=== PATIENT | male | born 1950 | race Caucasian/White ===

== ENCOUNTER 2017-10-10 06:35 | Day surgery (SDC) | payer MEDICARE ==
[2017-10-09 14:08] VITALS: BMI 23.0
[2017-10-10 07:34] VITALS: BP 111/71; TEMP 97.8
--- NOTE | 2017-10-10 10:01 | RAD ---
MYELOGRAM LUMBAR: Date: 10-10-17 History: 67-year-old male with new right lumbar radiculopathy. Technique: Signed informed consent obtained. Director Athletic radiographic images of the lumbar spine obtained. Patient delia issa in prone ROBBY position on fluoroscopy table. Skin of lower back prepped and draped in usual steril e fashion. 25 gauge needle used to apply buffered Lidocaine superficially and deeply. Under brief int ermittent fluoroscopy, a 22 gauge spinal needle was advanced into the spinal canal from a right perri edian approach at the L1-2 level (after reviewing previous CT lumbar myelogram of 07-01-15, which demo nstrated that the conus medullaris terminates at the mid L1 level). Upon brisk return of clear CSF, a total of 10 ml CSF was removed and replaced by injection of 10 ml of Isovue M200. Spinal needle was removed. Patient tolerated the procedure well. No complications. Patient was taken to CT. FINDINGS: The feather shaper radiographic images demonstrate severe bilateral facet osteoarthrosis at L4-5 causing a gra de I anterolisthesis of L4 on L5. There are moderate degenerative changes of the right SI joint. Vert ebral body heights are maintained. No scoliosis. No high grade disc space narrowing at any level. IMPRESSION: 1. Successful lumbar myelogram. 2. See separate report of CT myelogram of lumbar spine. 3. Grade I spondylolisthesis due to severe facet osteoarthrosis, at L4-5. 4. Degenerative changes of the right sacroiliac joint. POS: [facility]
--- NOTE | 2017-10-10 10:41 | CT ---
CT LUMBAR SPINE WITH CONTRAST CT MYELOGRAM LUMBAR SPINE: DATE: 10/10/17. HISTORY: A 67-year-old male with lumbar radiculopathy, low back pain radiating to right lower extremity. COMPARISON: CT myelogram of 07/01/15. FINDINGS: Again noted are the punctate 2 mm calculus in a right renal upper pole calyx, and the other punctate 2 mm calculus at a left renal lower pole calyx. There is no hydronephrosis. There are moderate dege nerative changes at the right SI joint, and mild degenerative changes at the left SI joint, unchanged . No scoliosis. Vertebral body heights are maintained. There are 5 lumbar-type vertebrae. T11-12: Normal. T12-L1: Normal. Conus medullaris terminates at mid L1. L1-2: Normal. L2-3: Slight narrowing of the posterior aspect of the disk space. Minimal disk bulge. Slight degen erative retrolisthesis of L2 on L3. Mild central stenosis. No high-grade neural foraminal stenosis. Mild to moderate bilateral degenerative facet changes. L3-4: Disk height maintained. There is new centrally located vacuum disk phenomenon. In addition t o a diffuse disk bulge, there is again demonstration of a thin, shallow, small midline disk extrusion , a portion of which has migrated superiorly to the upper foraminal level. Mild ligamentum flavum t hickening. A greater degree of focal hyperdensity at the posterior right paracentral edge of the sma ll central disk herniation, which probably represents calcification. Degenerative facet changes are mild. Moderate to severe central spinal canal stenosis. Mild to moderate bilateral neural foraminal stenosis. The slight degenerative retrolisthesis of L3 on L4 is unchanged. L4-5: Mild disk space narrowing. Severe bilateral degenerative facet changes, including severe face t bony hypertrophy. This degenerative facet disease causes a grade I anterolisthesis of L4 on L5. D iffuse mild disk bulge. All of these factors result in severe central spinal canal stenosis with crown attacher wding of the cauda equina. Moderate bilateral neural foraminal stenosis. No major interval change. L5-S1: Narrowing of the posterior aspect of the disk space, but not the mid and anterior aspects. N o central stenosis. Bilateral mild to moderate degenerative facet hypertrophy. Mild bilateral neura l foraminal stenosis. No high-grade central stenosis. IMPRESSION: 1. At L4-5, there is severe central spinal canal stenosis and moderate bilateral neural foraminal st enosis, due to a combination of severe facet osteoarthrosis, a grade I spondylolisthesis, and a mild diffuse disk bulge. 2. At L3-4, there is moderate to severe central spinal canal stenosis due to a combination of diffus e disk bulge, retrolisthesis, and a small, superiorly migrated central disk extrusion. 3. There is new vacuum disk phenomenon at L3-4, and a slightly greater degree of calcification of th e disk herniation. This is the only interval change since the prior CT myelogram. 4. Bilateral mild nephrolithiasis. POS: [facility]
== END 2017-10-10 09:20 | disposition home or self-care (01) ==
LOC: RAD 06:35 → EDSTATUS 08:00 → RAD 09:20
PROVIDERS: ATTEND Neurological Surgery
PROC: B00B1ZZ Plain Radiography of Spinal Cord using Low Osmolar Contrast (ICD-10-PCS; principal; 2017-10-10)
DX: M54.16 Radiculopathy, lumbar region (principal); M43.16 Spondylolisthesis, lumbar region; I25.10 Atherosclerotic heart disease of native coronary artery without angina pectoris; E11.9 Type 2 diabetes mellitus without complications; E78.5 Hyperlipidemia, unspecified; I25.5 Ischemic cardiomyopathy; I48.91 Unspecified atrial fibrillation; Z88.0 Allergy status to penicillin; Z79.82 Long term (current) use of aspirin; Z79.84 Long term (current) use of oral hypoglycemic drugs; Z79.899 Other long term (current) drug therapy; Z95.1 Presence of aortocoronary bypass graft; Z95.0 Presence of cardiac pacemaker; Z98.890 Other specified postprocedural states
CPT/HCPCS: 62304; 72132

== ENCOUNTER 2018-05-23 06:09 | Day surgery (SDC) | payer MEDICARE ==
[2018-05-22 15:31] VITALS: BMI 24.4
--- NOTE | 2018-05-23 15:53 | OP ---
DATE OF PROCEDURE: 05/23/2018 PROCEDURE PERFORMED: Colonoscopy with snare polypectomy. PREMEDICATIONS: Given by Anesthesiology Department. PREPROCEDURE DIAGNOSIS: Colon screening. POSTPROCEDURE DIAGNOSES: 1. Transverse polyps x2. 2. Small internal hemorrhoids. 3. Otherwise, normal colon exam. DESCRIPTION OF PROCEDURE: Written consents were obtained prior to procedure. After adequate sedation, rectal exam was performed and was normal. The endoscope was advanced to cecum. The quality of the bowel prep was good. The appendiceal orifice was visualized and appeared normal. The cecum, ascending colon, hepatic flexure appeared normal. In the transverse colon, 2 small polyps measuring between 3 to 5 mm were noted. These polyps were removed with cold snare and retrieved. The splenic flexure, descending colon, sigmoid colon, rectosigmoid colon appeared normal. Retroflexion demonstrated small internal hemorrhoids. The patient tolerated the procedure well. ASSESSMENT: 1. Two small transverse colon polyps, status post polypectomy. 2. Small internal hemorrhoids. 3. Otherwise, normal colon exam. RECOMMENDATION: Await biopsy result. Job ID: [id number] MTDD
[2018-05-23] MEDS ORDERED: PHENYLEPHRINE-NS 100 MCG/ML 10 ML SYRINGE ONE (16:31)
[2018-05-23] MEDS ORDERED: PROPOFOL 200 MG/20 ML VIAL ONE (16:31)
== END 2018-05-23 10:20 | disposition home or self-care (01) ==
LOC: SDC 06:09
PROVIDERS: ATTEND Internal Medicine Gastroenterology
PROC: 0DBL8ZX Excision of Transverse Colon, Via Natural or Artificial Opening Endoscopic, Diagnostic (ICD-10-PCS; principal; 2018-05-23)
DX: Z12.11 Encounter for screening for malignant neoplasm of colon (principal); D12.3 Benign neoplasm of transverse colon; K64.8 Other hemorrhoids; I48.91 Unspecified atrial fibrillation; I25.10 Atherosclerotic heart disease of native coronary artery without angina pectoris; E11.9 Type 2 diabetes mellitus without complications; E78.00 Pure hypercholesterolemia, unspecified; Z79.82 Long term (current) use of aspirin; Z79.02 Long term (current) use of antithrombotics/antiplatelets; Z79.84 Long term (current) use of oral hypoglycemic drugs; Z79.899 Other long term (current) drug therapy; Z88.0 Allergy status to penicillin; Z95.1 Presence of aortocoronary bypass graft
CPT/HCPCS: 88305; J2704

== ENCOUNTER 2018-08-27 14:58 | Inpatient (IN) | payer MEDICARE ==
--- NOTE | 2018-08-27 16:05 | RAD ---
PORTABLE CHEST 1 VIEW: Date: 08/27/18 Time: 1445 hours HISTORY: Chest pain. FINDINGS: Comparison made with exam of 08/12/16. Left-sided defibrillator remains in place. Changes of median sternotomy are again seen. The heart siz e is normal. The aorta is tortuous. The lungs are well expanded without focal areas of consolidation, pneumothoraces, or pleural effusions. IMPRESSION: No acute process. POS: [facility]
[2018-08-27 16:22] LABS: #Eosinphils 0.2 thou/uL (0.0-0.7); #Monocytes 1.5 thou/uL (0.11-0.59); #Neutrophils 12.6 thou/uL (1.40-6.50); %Basophils 0.1 % (0.0-1.0); %Eosinophils 1.4 % (0.0-10.0); %Lymphocytes 6.3 % (21.0-51.0); %Neutrophils 82.1 % (42.0-75.0); Hemoglobin 15.8 g/dL (14.0-18.0); Mean Corpuscular Hemoglobin 32.2 pg (27.0-31.0); Mean Corpuscular Volume 94.6 fL (78.0-98.0); Mean Platelet Volume 8.5 fL (7.4-10.4); Platelet Count 188 thou/uL (130-400); RBC Distribution Width 11.6 % (11.5-14.5); Red Blood Cell (RBC) Count 4.91 mill/uL (4.70-6.10); White Blood Cell (WBC) Count 15.4 thou/uL (4.8-10.8)
[2018-08-27] MEDS ORDERED: metroNIDAZOLE 500 MG/100 ML BAG ONE (16:41)
[2018-08-27] MEDS ORDERED: Acetaminophen 500 MG TAB ONE (17:01)
[2018-08-27 17:18] LABS: ALT (SGPT) 20 U/L (8-55); AST (SGOT) 18 U/L (5-34); Albumin 3.4 g/dL (3.4-4.8); Alkaline Phosphatase 47 U/L (40-150); Anion Gap 15 mmol/L (10-20); BUN (Urea Nitrogen) 30 mg/dL (8.4-25.7); Bilirubin, Total 0.9 mg/dL (0.2-1.2); CK (CPK) 56 U/L (30-200); Calc. Creatinine Clearance 0 mL/min (70-130); Carbon Dioxide 23 mmol/L (23-31); Chloride 98 mmol/L (98-107); Estimated GFR-MDRD 44; Globulin 2.9 g/dL (2.4-3.5); Glucose 185 mg/dL (80-115); Lipase 21 U/L (8-78); Potassium 3.7 mmol/L (3.5-5.1); Protein, Total 6.3 g/dL (5.8-8.1); Sodium 132 mmol/L (136-145)
[2018-08-27] MEDS ORDERED: Lidocaine 1% (PF) 30 ML VIAL ONE (19:03)
[2018-08-27] MEDS ORDERED: Norepinephrine 8 MG/0.9% NS 250 ML ONE (19:12)
[2018-08-27] MEDS ORDERED: Norepinephrine 8 MG/250 ML BAG IVPB PRN (19:14)
[2018-08-27 19:22] LABS: Bilirubin Small (Negative); Blood, Urine Negative (Negative); Clarity CLOUDY (Clear); Glucose, Urine (Dipstick) Negative (Negative); Leukocyte Trace (Negative); Nitrite Negative (Negative); Protein, Urine (Dipstick) 30 mg/dL (Neg-Trace); Specific Gravity, Urine 1.026 (1.002-1.036); Urobilinogen 0.2 mg/dL (0.2-1.0); pH, Urine 5.5 (5.0-9.0)
[2018-08-27 19:24] LABS: Squamous Epithelial 0-3 HPF (0-3); WBC/HPF 0-3 HPF (0-3)
[2018-08-27 19:25] LABS: Pathc Cast-AUWi Flag 6.66 (0-2.49)
[2018-08-27 19:33] LABS: Bacteria/HPF 1+ HPF (None Seen); Hyaline Casts/LPF NONE SEEN LPF (0-3 Hyaline); Manual Microscopic Reviewed? No Path Casts Seen; RBC/HPF None Seen HPF (0-3); Renal Epithelial None Seen HPF (0-3); Transitional Epithelial NONE SEEN HPF (0-3)
[2018-08-27] MEDS ORDERED: Lidocaine Viscous Sol 2% 15 ml UD Cup ONE (19:35)
[2018-08-27] MEDS ORDERED: Mag-Al 1200 mg/1200 mg/30 ML UDCUP ONE (19:35)
[2018-08-27] MEDS ORDERED: Acetaminophen 325 MG TAB ONE (22:31)
[2018-08-27] MEDS ORDERED: Acetaminophen 325 MG TAB PO PRN (23:35)
[2018-08-27] MEDS ORDERED: Guaifenesin DM 100-10/5 ML UDCUP PO PRN (23:35)
[2018-08-27] MEDS ORDERED: HumaLOG 300 UNITS/3 ML VIAL SC PRN (23:35)
[2018-08-27] MEDS ORDERED: Dextrose 5% in Water 1,000 ML IV PRN (23:35)
[2018-08-27] MEDS ORDERED: Dextrose 50% Abboject 50 ML SYRINGE SLOW IVP PRN (23:35)
[2018-08-27] MEDS ORDERED: Ondansetron PF 4 MG/2 ML Vial IVP PRN (23:35)
[2018-08-27] MEDS ORDERED: Nitroglycerin 0.4 MG TAB (25 Tab Bottle) SL PRN (23:45)
[2018-08-28] MEDS: Sodium Chloride 0.9% 1,000 ML IV SCH ×3 (00:15→20:53)
--- NOTE | 2018-08-28 01:14 | HP ---
REASON FOR ADMISSION: Severe dehydration and shock, C diff colitis. HISTORY OF PRESENTING ILLNESS: The patient gives history of having watery diarrhea from last 7 days. He has been having 3 to 4 episodes of large volume diarrhea, no blood in it. No vomiting as such, but has felt nauseous and has loss of appetite. On Monday, he went to see his primary care physician, Dr. Choudhury. He was told it could be a virus, which is just nagging him a little longer. He was told to take Lomotil and Zofran. From last 2 days, the patient has developed chills with temperatures of up to 99 at home. This morning, he called primary care physician again as he was not feeling well and his chills got worse. He was told to go to Urgent Care. He was also getting relief with Tylenol. From Urgent Care, patient went back home. As this was not feeling right, he came back to ER and was found to be severely dehydrated with systolic blood pressure in the 60s on arrival. He was given 2 L of IV fluid bolus and was placed on Levophed drip. He has had stool samples drawn, and one of it is positive for C diff. No prior history of antibiotic use. No prior history of C diff. He is not on any chemotherapy. No complaints of cough or expectoration. No chest pain. PAST MEDICAL AND SURGICAL HISTORY: History of CABG x2, the last CABG was 20 years back. History of CHF, on Entresto; diabetes mellitus type 2; pacemaker with a defibrillator; cholecystectomy; and knee ligament repair. CURRENT MEDICATIONS: 1. Buspirone 5 mg twice daily. 2. Lasix 20 mg on Monday, Monday, Monday. 3. Imdur extended release 30 mg daily. 4. Entresto 97/103 mg p.o. twice daily. 5. Ranitidine 150 mg daily. 6. Zetia 10 mg daily. 7. Ranexa 1000 mg twice daily. 8. Aspirin 325 mg daily. 9. Onglyza 5 mg daily. 10. Plavix 75 mg daily. 11. Crestor 40 mg daily. 12. Coreg 6.25 mg twice daily. 13. Metformin 1000 mg twice daily. 14. Aspirin 325 mg daily. ALLERGIES: ALLERGIC TO PENICILLIN AND INTOLERANT TO ULTRAM. PERSONAL HISTORY: Does not abuse alcohol or drugs. No history of smoking. FAMILY HISTORY: Mother at the age of 92 years. She has had history of breast cancer. Father at the age of 62, has history of heart failure. CODE STATUS: Full. Power of county attorney is his , who is here at bedside. REVIEW OF SYSTEMS: CONSTITUTIONAL: Negative for weight loss or gain, ability to conduct usual activities. SKIN: Negative for rash, itching. EYES: Negative for double vision, pain. ENT/MOUTH: Negative for nose bleeding, neck stiffness, pain, tenderness. CARDIOVASCULAR: Negative for palpitations, dyspnea on exertion, orthopnea. RESPIRATORY: Negative for shortness of breath, wheezing, cough, hemoptysis, fever or night sweats. GASTROINTESTINAL: Negative for poor appetite, abdominal pain, heartburn, nausea, vomiting, constipation, or diarrhea. GENITOURINARY: Negative for urgency, frequency, dysuria, nocturia. MUSCULOSKELETAL: Negative for pain, swelling. NEUROLOGIC/PSYCHIATRIC: Negative for anxiety, depression. ALLERGY/IMMUNOLOGIC: Negative for skin rash, bleeding tendency. PHYSICAL EXAMINATION: GENERAL: The patient is a 68-year-old male, who is currently not in any acute distress. VITAL SIGNS: Blood pressure on arrival was 70/50, currently has come up to 101 systolic, pulse is 90 per minute, respiratory rate 18 per minute, temperature 100 degrees on arrival, saturating 94% on room air. NECK: Supple. No elevated JVD. HEENT: Eyes; extraocular muscles intact. Pupils reacting to light. Oral cavity; mucous membranes are dry. No exudates or congestion. CARDIOVASCULAR SYSTEM: S1 and S2 heard. Tachycardic. RESPIRATORY SYSTEM: Air entry, 1+ bilateral. No rales or rhonchi. ABDOMEN: Soft. Bowel sounds heard. No tenderness, rigidity, or guarding. EXTREMITIES: No peripheral edema or calf tenderness. VASCULAR SYSTEM: Peripheral pulses 1+ bilateral. No ischemic ulcerations or gangrene. CENTRAL NERVOUS SYSTEM: No gross focal deficits noted. The patient is alert, awake, oriented well. PSYCHIATRIC SYSTEM: The patient's mood is euthymic. No hallucinations or delusions. LABORATORY DATA: Chest x-ray done shows no acute process. Stool for C diff antigen and toxin are positive. The patient is also positive for Campylobacter antigen. Shiga toxin is negative. Sodium 132, serum bicarb 23, BUN 30, creatinine 1.56, serum glucose 185. Liver enzymes within normal limits. First set of cardiac enzymes are negative. BNP is 72. Lipase is 21. White count of 15, H and H 15 and 46, platelet count 188 with 82% neutrophils, MCV is 94. CLINICAL IMPRESSION AND PLAN: The patient will be admitted to ICU as he is on Levophed drip. He has received a total of 2 L of IV fluid bolus and we will continue him on 100 mL per hour. The patient has known history of heart failure with him being on Entresto. In view of this, he will be closely monitored for possible overload. We will place him on vancomycin 125 mg p.o. four times daily for C diff colitis. He will be on clear liquid diet for now. We will also continue his aspirin, low-dose Coreg from morning, Plavix, and Crestor. If needed, further boluses will be given based on his response. He has currently responded well to 2 L of normal saline boluses with Levophed. The Levophed will be slowly weaned off shortly. We will continue to closely monitor him in ICU for now. Job ID: [id number]
[2018-08-28 05:11] LABS: #Eosinphils 0.1 thou/uL (0.0-0.7); #Lymphocytes 0.9 thou/uL (1.20-3.40); #Monocytes 2.1 thou/uL (0.11-0.59); #Neutrophils 14.9 thou/uL (1.40-6.50); %Basophils 0.2 % (0.0-1.0); %Eosinophils 0.3 % (0.0-10.0); %Monocytes 11.9 % (0.0-10.0); %Neutrophils 82.7 % (42.0-75.0); Hemoglobin 13.8 g/dL (14.0-18.0); Mean Corpuscular HGB CONC 33.4 g/dL (32.0-36.0); Mean Corpuscular Hemoglobin 31.9 pg (27.0-31.0); Mean Corpuscular Volume 95.7 fL (78.0-98.0); Mean Platelet Volume 7.5 fL (7.4-10.4); Platelet Count 173 thou/uL (130-400); RBC Distribution Width 11.5 % (11.5-14.5); Red Blood Cell (RBC) Count 4.32 mill/uL (4.70-6.10)
[2018-08-28 05:33] LABS: ALT (SGPT) 16 U/L (8-55); AST (SGOT) 14 U/L (5-34); Albumin 2.9 g/dL (3.4-4.8); Alkaline Phosphatase 42 U/L (40-150); Anion Gap 13 mmol/L (10-20); BUN (Urea Nitrogen) 17 mg/dL (8.4-25.7); Calc. Creatinine Clearance 68 mL/min (70-130); Calcium 8.2 mg/dL (7.8-10.44); Carbon Dioxide 23 mmol/L (23-31); Chloride 103 mmol/L (98-107); Estimated GFR-MDRD 63; Globulin 2.5 g/dL (2.4-3.5); Glucose 189 mg/dL (80-115); Potassium 3.8 mmol/L (3.5-5.1); Protein, Total 5.4 g/dL (5.8-8.1); Sodium 135 mmol/L (136-145)
[2018-08-28] MEDS: Carvedilol 6.25 MG TAB PO SCH (08:36)
[2018-08-28] MEDS: Enoxaparin Sodium 40 MG/0.4 ML SYRINGE SC SCH (08:36)
[2018-08-28] MEDS: Clopidogrel Bisulfate 75 MG TAB PO SCH (08:36)
[2018-08-28] MEDS: Aspirin 325 MG TAB PO SCH (08:36)
[2018-08-28] MEDS ORDERED: Albumin 25% 25 GM/100 ML BOT IVPB SCH (08:56)
[2018-08-28] MEDS ORDERED: Vancomycin HCl 25 MG/ML Oral PO SCH (09:00)
--- NOTE | 2018-08-28 09:20 | CON ---
DATE OF CONSULTATION: HISTORY OF PRESENT ILLNESS: A pleasant 68-year-old gentleman, who came to the ER with several day history of profuse diarrhea, unresponsive to usual medication prescribed by his primary care physician including Lomotil, antinausea medicine. He became weak yesterday up to 10 times a day. There is no nausea or vomiting, though. He was not taking antibiotics prior to that. PAST MEDICAL HISTORY: Pertinent for diabetes and CHF. PREVIOUS SURGERIES: Defibrillator, AICD, and CABG x2. HOME MEDICATIONS: Include; 1. Glucophage 2 tablets twice a day. 2. Aspirin. 3. Crestor 40. 4. Plavix 75. 5. Ranexa 1000. 6. Entresto. 7. ISMO 30. 8. Onglyza 5 mg. 9. Zetia 10. 10. Lasix. 11. Nitroglycerin. 12. Zantac. ALLERGIES: PENICILLIN. SOCIAL AND FAMILY HISTORY: No alcohol. No tobacco. Retired from the [employer]. REVIEW OF SYSTEMS: Ten-point negative. PHYSICAL EXAMINATION: VITAL SIGNS: Blood pressure 108/69 on Levophed, pulse 80, and respiratory rate 18. GENERAL: He is awake, alert, and responsive. HEENT: Mucous membranes appear to be dry. CHEST: Decreased breath sounds. No wheezing. CARDIAC: Normal S1 and S2. No gallops. ABDOMEN: No masses. LABORATORY DATA: His albumin is 2.9. His lytes are normal. Glucose 189. White count 18,000. ASSESSMENT: 1. Clostridium difficile colitis. 2. Dehydration. 3. Congestive heart failure. 4. Coronary artery disease. 5. Diabetes. PLAN: I agree with vancomycin p.o. Continue PT, supportive care. Consultation note, 70 minutes, 50% direct patient care. Job ID: [id number]
[2018-08-28] MEDS: Vancomycin HCl 25 MG/ML Oral PO SCH ×4 (09:34→20:54)
--- NOTE | 2018-08-28 09:52 | PDOC.PN ---
- Subjective Encounter Start Date: 08/28/18 Encounter Start Time: 09:50 Mr. Estrada was seen today in follow-up of C. Diff Colitis. He is still feeling weak, and has had 3 loose stolls this morning. He denies abdominal pain. - Objective Resuscitation Status - Order Detail: 08/27/18 23:32 Resuscitation Status Routine Resuscitation Status: FULL: Full Resuscitation MAR Reviewed: Yes Vital Signs & Weight: Vital Signs (12 hours) Temp Pulse Resp BP BP Pulse Ox 08/28/18 08:36 108/65 08/28/18 07:09 99 08/28/18 07:00 99.5 F 08/28/18 04:00 99.4 F 08/28/18 00:00 99.1 F 99 08/27/18 23:58 99.1 F 98 18 109/47 L 100 Weight Weight 175 lb 7.807 oz Most Recent Monitor Data Heart Rate from ECG 105 NIBP 101/68 NIBP BP-Mean 79 Respiration from ECG 18 SpO2 100 I&O: 08/27/18 08/28/18 08/29/18 06:59 06:59 06:59 Intake Total 831 0 Output Total 1200 1000 Balance -369 -1000 Result Diagrams: 08/28/18 05:00 08/28/18 05:00 Phys Exam - Physical Examination HEENT: PERRLA Respiratory: no wheezing, no rales, no rhonchi, clear to auscultation bilateral Cardiovascular: RRR, no significant murmur, no rub Gastrointestinal: soft, non-tender, no distention, positive bowel sounds Musculoskeletal: no edema, pulses present Dx/Plan (1) C. difficile colitis Status: Acute (2) Septic shock Code(s): A41.9 - SEPSIS, UNSPECIFIED ORGANISM; R65.21 - SEVERE SEPSIS WITH SEPTIC SHOCK Status: Acute (3) CAD (coronary artery disease) Code(s): I25.10 - ATHSCL HEART DISEASE OF [place] CORONARY ARTERY W/O ANG PCTRS Status: Chronic (4) Chronic systolic heart failure Code(s): I50.22 - CHRONIC SYSTOLIC (CONGESTIVE) HEART FAILURE Status: Chronic - Plan * Clostridium Difficile Colitis- with sepsis- continue Oral Vancomycin, and supportive care with fluid resuscitation * Continue Levophed drip- ( patient's says his blood pressure usually runs about 100 systolic * CAD- stable * Chronic systolic heart failure- Entresto is on hold due to hypotension * DM - blood glucose is stable.
[2018-08-28] MEDS: HumaLOG 300 UNITS/3 ML VIAL SC PRN (11:03)
[2018-08-28] MEDS ORDERED: Digoxin 0.5 MG/2 ML AMP SLOW IVP SCH (11:30)
[2018-08-28] MEDS: Sodium Chloride 0.9% 500 ML IV SCH ×2 (20:50→21:53)
[2018-08-28] MEDS: Rosuvastatin 20 MG TAB PO SCH (20:54)
[2018-08-28] MEDS: Famotidine 20 MG TAB PO SCH (20:54)
--- NOTE | 2018-08-28 21:48 | CON ---
DATE OF CONSULTATION: 08/28/2018 REFERRING PHYSICIAN: Dr. Ybarra. HISTORY OF PRESENT ILLNESS: I am seeing Mr. Estrada at our [facility] ICU as an Electrophysiology end user consultant. His problems are: 1. Paroxysmal atrial fibrillation in the setting of septic/hypovolemic shock, possibly due to C. diff. a. Spontaneous conversion back to sinus rhythm is noted. 2. History of chronic systolic congestive heart failure with ischemic cardiomyopathy. a. Prior history of CABG x2 vessels following myocardial infarction 20 years ago. b. Severely reduced LVEF by left heart catheterization on 08/16/2016 at 25% with occlusion of LAD, RCA, circumflex narrowing, patent SVG to proximal LAD, diagonal RCA, occluded ALBRECHT to distal LAD, status post successful PTCA to LAD on 2016. 3. History of ICD implant with a dual-chamber ICD with recent generator change with [employer] wood heel back liner in June 2018. 4. Risk factors including type 2 diabetes. ALLERGIES: PENICILLIN AND INTOLERANT TO ULTRAM. MEDICATIONS: At home include: 1. Buspirone. 2. Lasix. 3. Imdur. 4. Entresto 97/103 twice a day. 5. Ranitidine. 6. Zetia. 7. Ranexa. 8. Onglyza. 9. Plavix. 10. Crestor. 11. Coreg 6.25 mg twice a day. 12. Metformin 1000 mg twice a day. 13. Aspirin 325 mg daily. SUBJECTIVE: Mr. Estrada was admitted on the 27 of August with complaints of large volume diarrhea 3 to 4 times a day. He noticed blood is staining in it. He felt nauseous, but did not throw up. He had limited p.o. intake due to poor appetite. He was given Lomotil and Zofran, but then he started developing fevers and chills with temperature up to 99 degrees at home. He eventually was evaluated in the ER and found to be severely dehydrated with systolic blood pressure in the 60s on arrival. IV fluid has improved his blood pressure, but he also required Levophed as well. His stool samples positive for C. diff. Currently, he is feeling somewhat better. While monitoring, he developed rapid atrial fibrillation but then spontaneous conversion was noted. Currently, he is asymptomatic other than some generalized fatigue and weakness. He has no fever or chills. Denies cough. He still has diarrhea. No stroke-like symptoms or bleeding issues and rest of 12-point system otherwise unremarkable. PAST MEDICAL HISTORY: As above. He is followed at our office for ICD care. He did undergo recent ICD generator change with prophylactic antibiotics a week in June. SOCIAL HISTORY: The patient denies smoking, EtOH, or drug abuse. FAMILY HISTORY: Significant for mother at age 92 with history of breast cancer. Father at age 62 with heart failure. OBJECTIVE DATA: VITAL SIGNS: Blood pressure 109/61, heart rate 77, respirations 21, and temperature is 99.8 degrees Fahrenheit this afternoon. PHYSICAL EXAMINATION: GENERAL: Alert and oriented man, in no apparent distress. NECK: Supple. Jugular veins not distended. CHEST: Coarse with crackles. HEART: Sounds are regular to rate and rhythm. No murmur or gallop. ABDOMEN: Benign. Bowel sounds positive. EXTREMITIES: Lower extremities without edema, clubbing, or cyanosis. DATABASE: The EKG is reviewed reveals sinus rhythm, right bundle pattern. The telemetry strips do reveal an episode of rapid heart rates in the 140s to 150s about 11 o'clock this afternoon with spontaneous shinto of sinus rhythm, sinus tachycardia at 107 beats per minute. LABORATORY DATA: White cell count is 18, hemoglobin 13.8, platelet count is 173. Sodium 135, potassium 3.8, BUN is 17, creatinine 1.1, glucose of 161. AST and ALT are 14 and 16. Troponin I is less than 0.01. The BNP is 72. DIAGNOSTIC DATA: Chest x-ray shows no venous fluid overload, dual-chamber ICD in adequate position. The microbiology shows positive C. diff and negative parasite screen from the stool. ASSESSMENT AND PLAN: Mr. Estrada is a very pleasant 68-year-old man with history of ischemic cardiomyopathy, remote myocardial infarctions reduced LVEF in a severe range, dual-chamber ICD in place, who has developed Clostridium difficile colitis and become severely dehydrated septic appearing on admission. It has improved with fluid replacement and Levophed administration, which he is still receiving. He did develop transient episode of atrial fibrillation, which spontaneously terminated. He has no prior history of this. He did have history of ventricular tachycardia , that was treated with device in the past. At this point, his atrial fibrillation is likely provoked by his acute medical condition and the pressor therapy. Ideally with medical stabilization, this tendency hopefully will subside, and then if he has recurrent episodes, he could be considered for antiarrhythmic agents, p.o. sotalol or IV amiodarone could be considered at that time. If recurrence seen, I resume rate control with continued beta-jodee therapy, addition of digoxin and consider switching him to antiarrhythmic agents, possible sotalol, alternatively amiodarone could be used if acutely sick still. In the meantime, again optimize medical condition, attempt to wean off pressors. We will interrogate his ICD for any preceding episodes of atrial fibrillation and we will follow up with you. For now, consider increasing his Lovenox if further atrial fibrillation is seen to a full therapeutic dose unless the GI bleeding would preclude this. Hence, his mild hemoglobin drop, although, it could be dilutional. At this point, I did not initiate this yet. History of congestive heart failure, cardiomyopathy, not in fluid overload, but hypovolemic. Monitor closely for volume status. Thank you for allowing me to participate in care this patient. We will follow with you. Job ID: [id number] [facility] CENTERThomas
[2018-08-29 05:13] LABS: #Eosinphils 0.2 thou/uL (0.0-0.7); #Lymphocytes 1.1 thou/uL (1.20-3.40); #Monocytes 1.1 thou/uL (0.11-0.59); #Neutrophils 8.9 thou/uL (1.40-6.50); %Basophils 0.3 % (0.0-1.0); %Lymphocytes 9.5 % (21.0-51.0); %Neutrophils 78.1 % (42.0-75.0); Hemoglobin 12.7 g/dL (14.0-18.0); Mean Corpuscular HGB CONC 33.2 g/dL (32.0-36.0); Mean Corpuscular Hemoglobin 32.2 pg (27.0-31.0); Mean Platelet Volume 7.9 fL (7.4-10.4); Platelet Count 141 thou/uL (130-400); RBC Distribution Width 11.7 % (11.5-14.5); Red Blood Cell (RBC) Count 3.96 mill/uL (4.70-6.10); White Blood Cell (WBC) Count 11.3 thou/uL (4.8-10.8)
[2018-08-29 05:34] LABS: Anion Gap 11 mmol/L (10-20); BUN (Urea Nitrogen) 11 mg/dL (8.4-25.7); Calc. Creatinine Clearance 91 mL/min (70-130); Calcium 8.2 mg/dL (7.8-10.44); Carbon Dioxide 25 mmol/L (23-31); Chloride 103 mmol/L (98-107); Estimated GFR-MDRD 88; Glucose 127 mg/dL (80-115); Potassium 3.2 mmol/L (3.5-5.1); Sodium 136 mmol/L (136-145)
[2018-08-29] MEDS: Famotidine 20 MG TAB PO SCH ×2 (08:25→20:09)
[2018-08-29] MEDS: Vancomycin HCl 25 MG/ML Oral PO SCH ×4 (08:25→20:09)
[2018-08-29] MEDS: Enoxaparin Sodium 40 MG/0.4 ML SYRINGE SC SCH (08:26)
[2018-08-29] MEDS: Aspirin 325 MG TAB PO SCH (08:26)
[2018-08-29] MEDS: Carvedilol 6.25 MG TAB PO SCH (08:26)
[2018-08-29] MEDS: Clopidogrel Bisulfate 75 MG TAB PO SCH (08:26)
--- NOTE | 2018-08-29 08:56 | PRG ---
DATE OF SERVICE: 08/29/2018 SUBJECTIVE: This morning, he is better. Less pain, less nausea, less diarrhea. OBJECTIVE: VITAL SIGNS: Blood pressure 108/65, pulse is 90, respiratory rate 18, sats 98%. CHEST: Decreased breath sounds. No wheezing. CARDIAC: Normal S1 and S2. No gallops. ABDOMEN: No masses. LABORATORY DATA: White count 11,000 and H and H of 12 and 38, platelet count is normal. Lytes are normal. IMPRESSION: 1. Clostridium difficile colitis, on vancomycin. 2. Atrial fibrillation. PLAN: 1. Continue vancomycin. 2. Supportive care and PT. We will follow. Job ID: [id number]
[2018-08-29] MEDS ORDERED: Saccharomyces boulardii 250 MG CAP PO SCH ×2 (10:32→11:00)
--- NOTE | 2018-08-29 15:00 | PDOC.PN ---
- Subjective Encounter Start Date: 08/29/18 Encounter Start Time: 14:58 Subjective: feels much better.2 loose BM this morning but no blood -: no abd pain or N/V.feels very hungry -: care discussed w at bedside - Objective Resuscitation Status - Order Detail: 08/27/18 23:32 Resuscitation Status Routine Resuscitation Status: FULL: Full Resuscitation MAR Reviewed: Yes Vital Signs & Weight: Vital Signs (12 hours) Temp BP Pulse Ox 08/29/18 12:00 98.8 F 08/29/18 08:26 108/65 08/29/18 07:08 98 08/29/18 07:00 98.9 F 08/29/18 04:00 99.5 F Weight Admit Weight 175 lb 11.335 oz Weight 172 lb 9.951 oz Most Recent Monitor Data Heart Rate from ECG 93 NIBP 86/74 NIBP BP-Mean 78 Respiration from ECG 19 SpO2 98 I&O: 08/28/18 08/29/18 08/30/18 06:59 06:59 06:59 Intake Total 831 4840 840 Output Total 1200 4300 750 Balance -369 540 90 Result Diagrams: 08/29/18 04:48 08/29/18 04:48 Additional Labs: Accuchecks 08/28/18 08/28/18 21:04 16:00 POC Glucose 147 H 130 H Microbiology 08/27/18 17:35 Stool - Pending Rapid Parasite Screen - Final 08/27/18 17:35 Stool - Pending Campylobacter Antigen Assay - Final 08/27/18 17:35 Stool - Pending Shiga Toxin Test - Final 08/27/18 17:35 Stool - Pending C. difficile GDH Antigen & Toxins - Final 08/27/18 17:35 Stool - Pending Stool Culture - Preliminary 08/27/18 15:45 Venous blood - Left Arm Blood Culture - Preliminary Specimen has been received and culture in progress. No Growth to date. 08/27/18 15:34 Venous blood - Right Arm Blood Culture - Preliminary Specimen has been received and culture in progress. No Growth to date. Laboratory Tests 08/27/18 08/28/18 08/29/18 15:34 05:00 04:48 WBC 15.4 H 18.0 H 11.3 H Phys Exam - Physical Examination Constitutional: NAD HEENT: PERRLA, moist MMs, sclera anicteric, oral pharynx no lesions Neck: no nodes, no JVD, supple, full ROM Respiratory: no wheezing, no rales, no rhonchi, clear to auscultation bilateral Cardiovascular: RRR, no significant murmur, no rub Gastrointestinal: soft, non-tender, no distention, positive bowel sounds Musculoskeletal: no edema, pulses present Neurological: non-focal, normal sensation, moves all 4 limbs Psychiatric: normal affect, A&O x 3 Skin: no rash Dx/Plan (1) C. difficile colitis Status: Acute (2) Sepsis Code(s): A41.9 - SEPSIS, UNSPECIFIED ORGANISM Status: Acute Comment: secondary to #1 (3) CAD (coronary artery disease) Code(s): I25.10 - ATHSCL HEART DISEASE OF [place] CORONARY ARTERY W/O ANG PCTRS Status: Chronic (4) Chronic systolic heart failure Code(s): I50.22 - CHRONIC SYSTOLIC (CONGESTIVE) HEART FAILURE Status: Chronic (5) Septic shock Code(s): A41.9 - SEPSIS, UNSPECIFIED ORGANISM; R65.21 - SEVERE SEPSIS WITH SEPTIC SHOCK Status: Resolved Comment: off of levophed - Plan plan discussed w/ family, DVT proph w/SCDs Advance diet.clinically better -: cont Po vanco.add probiotics -: Ok to transfer to tele. -: BP better. monitor. Hold coreg for now -: Am labs * . Review of Systems - Review of Systems Constitutional: weakness, malaise. negative: fever, chills, sweats, other ENT: negative: Ear Pain, Ear Discharge, Nose Pain, Nose Discharge, Nose Congestion, Mouth Pain, Mouth Swelling, Throat Pain, Throat Swelling, Other Respiratory: negative: Cough, Dry, Shortness of Breath, Hemoptysis, SOB with Excertion, Pleuritic Pain, Sputum, Wheezing Cardiovascular: negative: chest pain, palpitations, orthopnea, paroxysmal nocturnal dyspnea, edema, light headedness, other Gastrointestinal: Diarrhea. negative: Nausea, Vomiting, Abdominal Pain, Constipation, Melena, Hematochezia, Other Genitourinary: negative: Dysuria, Frequency, Incontinence, Hematuria, Retention , Other Musculoskeletal: negative: Neck Pain, Shoulder Pain, Arm Pain, Back Pain, Hand Pain, Leg Pain, Foot Pain, Other Neurological: negative: Weakness, Numbness, Incoordination, Change in Speech, Confusion, Seizures, Other - Medications/Allergies Allergies/Adverse Reactions: Allergies Allergy/AdvReac Type Severity Reaction Status Date / Time Penicillins Allergy Hives Verified 08/27/18 23:47 Medications: Current Medications Acetaminophen (Tylenol) 650 mg PO Q4H PRN PRN Reason: Headache/Fever/Mild Pain (1-3) Aspirin (Aspirin) 325 mg PO DAILY REPLACED BY [facility] Last Admin: 08/29/18 08:26 Dose: 325 mg Carvedilol (Coreg) 6.25 mg PO QAM REPLACED BY [facility] Last Admin: 08/29/18 08:26 Dose: Not Given Clopidogrel Bisulfate (Plavix) 75 mg PO DAILY REPLACED BY [facility] Last Admin: 08/29/18 08:26 Dose: 75 mg Dextrose/Water (Dextrose 50%) 25 gm SLOW IVP PRN PRN PRN Reason: Hypoglycemia Enoxaparin Sodium (Lovenox) 40 mg SC 0900 REPLACED BY [facility] Last Admin: 08/29/18 08:26 Dose: 40 mg Famotidine (Pepcid) 20 mg PO BID REPLACED BY [facility] Last Admin: 08/29/18 08:25 Dose: 20 mg Glucagon (Glucagon) 1 mg IM PRN PRN PRN Reason: Hypoglycemia Guaifenesin/Dextromethorphan (Robitussin Dm) 15 ml PO Q4H PRN PRN Reason: Cough Dextrose/Water (D5w) 1,000 mls @ 0 mls/hr IV .Q0M PRN PRN Reason: Hypoglycemia Insulin Human Lispro (Humalog) 0 units SC .MODERATE SLIDING SC PRN PRN Reason: Moderate Correctional Scale Last Admin: 08/28/18 11:03 Dose: 2 unit Insulin Human Lispro (Humalog) 0 units SC .BEDTIME SLIDING SC PRN PRN Reason: Bedtime Correctional Scale Nitroglycerin (Nitrostat) 0.4 mg SL Q5MIN PRN PRN Reason: Chest Pain Ondansetron HCl (Zofran) 4 mg IVP Q6H PRN PRN Reason: Nausea/Vomiting Last Admin: 08/28/18 10:49 Dose: 4 mg Rosuvastatin Calcium (Crestor) 40 mg PO HS REPLACED BY [facility] Last Admin: 08/28/18 20:54 Dose: 40 mg Saccharomyces Boulardii (Florastor) 250 mg PO BID REPLACED BY [facility] Vancomycin HCl (First Vancomycin) 250 mg PO QID REPLACED BY [facility] Last Admin: 08/29/18 12:47 Dose: 250 mg
[2018-08-29] MEDS: HumaLOG 300 UNITS/3 ML VIAL SC PRN (16:00)
[2018-08-29] MEDS: Saccharomyces boulardii 250 MG CAP PO SCH (20:09)
[2018-08-29] MEDS: Rosuvastatin 20 MG TAB PO SCH (20:09)
--- NOTE | 2018-08-29 21:12 | PRG ---
DATE OF SERVICE: 08/29/2018 SUBJECTIVE: Mr. Estrada is somewhat better today, off Levophed, and has also had no recurrent atrial fibrillation. OBJECTIVE: VITAL SIGNS: Blood pressure is 103/70, heart rate 81, respirations 16, and heart rate 100. GENERAL: He is alert and oriented man, in no apparent distress. NECK: Supple. Jugular veins not distended. CHEST: Coarse without crackles. HEART: Regular rate and rhythm. No murmur or gallop. ABDOMEN: Benign. Bowel sounds positive. EXTREMITIES: Lower extremities without edema, clubbing, or cyanosis. DIAGNOSTIC STUDIES: Telemetry strips reviewed revealed sinus rhythm, no recurrent atrial fibrillation. LABORATORY DATA: White cell count 7.3, hemoglobin is 12.7, and platelet count 141. Sodium 136, potassium 3.2, BUN 9, and creatinine of 0.86. Blood cultures show no growth so far. ASSESSMENT AND PLAN: Mr. Estrada is a pleasant 68-year-old man with history of congestive heart failure, cardiomyopathy, and dual-chamber ICD in place. He has episodes of atrial fibrillation while recovering from septic episode possibly due to Clostridium difficile colitis. He was receiving appropriate antibiotic. Atrial fibrillation episode was short lasting and spontaneously resolved. ICD interrogation was performed revealing adequate function and intermittent atrial fibrillation were seen during the acute phase of the illness. At this point, I would continue observation. It seems that his atrial fibrillation is not recurring as he is improving his general medical status. Currently off Levophed and his pressure is also improving. Continue monitoring of atrial fibrillation if reasonable. For now, I would hold off on initiating anticoagulant unless further atrial fibrillation is seen. Heart failure control well controlled. ICD function is adequate. Job ID: [id number]
[2018-08-30 05:35] LABS: #Eosinphils 0.5 thou/uL (0.0-0.7); #Lymphocytes 1.2 thou/uL (1.20-3.40); #Monocytes 0.8 thou/uL (0.11-0.59); #Neutrophils 5.2 thou/uL (1.40-6.50); %Basophils 0.3 % (0.0-1.0); %Eosinophils 6.4 % (0.0-10.0); %Lymphocytes 16.2 % (21.0-51.0); %Monocytes 9.7 % (0.0-10.0); %Neutrophils 67.4 % (42.0-75.0); Hemoglobin 12.6 g/dL (14.0-18.0); Mean Corpuscular HGB CONC 33.8 g/dL (32.0-36.0); Mean Corpuscular Hemoglobin 32.9 pg (27.0-31.0); Mean Corpuscular Volume 97.1 fL (78.0-98.0); Mean Platelet Volume 7.9 fL (7.4-10.4); Platelet Count 138 thou/uL (130-400); RBC Distribution Width 11.5 % (11.5-14.5); Red Blood Cell (RBC) Count 3.85 mill/uL (4.70-6.10); White Blood Cell (WBC) Count 7.7 thou/uL (4.8-10.8)
[2018-08-30 05:57] LABS: Anion Gap 10 mmol/L (10-20); BUN (Urea Nitrogen) 11 mg/dL (8.4-25.7); Calc. Creatinine Clearance 91 mL/min (70-130); Calcium 8.1 mg/dL (7.8-10.44); Carbon Dioxide 28 mmol/L (23-31); Chloride 102 mmol/L (98-107); Estimated GFR-MDRD 89; Glucose 112 mg/dL (80-115); Potassium 3.1 mmol/L (3.5-5.1); Sodium 137 mmol/L (136-145)
[2018-08-30] MEDS: Enoxaparin Sodium 40 MG/0.4 ML SYRINGE SC SCH (08:31)
[2018-08-30] MEDS: Vancomycin HCl 25 MG/ML Oral PO SCH ×2 (08:31→12:34)
[2018-08-30] MEDS: Saccharomyces boulardii 250 MG CAP PO SCH (08:31)
[2018-08-30] MEDS: Clopidogrel Bisulfate 75 MG TAB PO SCH (08:31)
[2018-08-30] MEDS: Carvedilol 6.25 MG TAB PO SCH (08:31)
[2018-08-30] MEDS: Aspirin 325 MG TAB PO SCH (08:31)
[2018-08-30 08:32] VITALS: BP 125/70
[2018-08-30] MEDS: Famotidine 20 MG TAB PO SCH (08:32)
--- NOTE | 2018-08-30 09:37 | PRG ---
DATE OF SERVICE: 08/30/2018 SUBJECTIVE: This morning, he is awake, alert, and responsive. He is doing well. His diarrhea is much improved. OBJECTIVE: VITAL SIGNS: His blood pressure is stabilized 128/70, his saturations are 98% on room air, respiratory rate 18 and pulse 80. CHEST: Decreased breath sounds. No wheezing. CARDIAC: Normal S1, S2. No gallops. Lytes and CBC unremarkable. ASSESSMENT AND PLAN: 1. Clostridium difficile colitis with hypotension, resolved. 2. Supraventricular tachycardia. Continue p.o. vancomycin. Can be transferred out of the ICU any time. PT supportive care. Job ID: [id number]
[2018-08-30 10:00] VITALS: BMI 24.0
[2018-08-30] MEDS ORDERED: Potassium Chloride 20 MEQ TAB PO SCH (10:00)
[2018-08-30] MEDS: Potassium Chloride 20 MEQ TAB PO SCH ×2 (12:03→13:53)
[2018-08-30 12:11] VITALS: TEMP 98.9
--- NOTE | 2018-08-30 15:26 | PDOC.CTH ---
Cardiology Progress Note - Subjective EP PROGRESS NOTE: 08/30/18 Seen as follow up for newly seen atrial fibrillation and recent ICD gen change. Feels well today. Medically stable off pressors now. no new cardiac concerns or complaints. - Objective Vital Signs Temp BP Pulse Ox 08/30/18 12:00 98.9 F 08/30/18 08:31 125/70 08/30/18 07:03 98 Admit Weight 175 lb 11.335 oz Weight 172 lb 9.951 oz 08/29/18 08/30/18 08/31/18 06:59 06:59 06:59 Intake Total 4840 1080 480 Output Total 4300 1650 500 Balance 540 -570 -20 - Physical Examination General/Neuro: alert & oriented x3, NAD Neck: carotid US brisk, no JVD present Lungs: CTA, unlabored respirations Heart: PMI normal, RRR Abdomen: NT/ND - Telemetry Telemetry Rhythm: SR - Labs Result Diagrams: 08/30/18 04:38 08/30/18 04:38 Troponin/CKMB Troponin I Less than 0.010 ng/mL (< 0.028) 08/27/18 15:34 - Assessment/Plan 1. ICD -recent generator change - incision CDI, no signs of infection, edges well approximated 2. Newly diagnosed atrial fibrillation - setting of sepsis - low burden - paroxysmal 3. Clostridium difficil colitis - anbx treatment 4. CHADS2-VASC: 4 ( HF, CAD, age, DM) - no OAC at this time. Will continue to monitor AF burden through ICD and home monitoring. If persisting episodes of AF are seen, will recommend/discuss initiating OAC. OK to DC home by EP
--- NOTE | 2018-08-30 16:18 | DIS ---
DATE OF ADMISSION: 08/27/2018 DATE OF DISCHARGE: 08/30/2018 DISCHARGE DIAGNOSES: 1. Circulatory shock. 2. Severe dehydration. 3. Medication-induced hypertension. 4. Clostridium difficile colitis with diarrhea. 5. Paroxysmal atrial fibrillation. 6. Hypokalemia. 7. Hypomagnesemia. 8. Ischemic cardiomyopathy. 9. Coronary artery disease, status post bypass surgery. 10. Acute kidney injury. 11. Type 2 diabetes mellitus. CONSULTS: 1. Cardiology. 2. Pulmonary. HOSPITAL COURSE: The patient with known history of diabetes and ischemic cardiomyopathy with ejection fraction in 20s, status post ICD placement, admitted with 10 days of frequent loose stools associated with generalized weakness and lightheadedness. The patient was found to have blood pressures in 60s, hence was resuscitated with IV fluid as well as Levophed. Hospital course was complicated by development of paroxysmal atrial fibrillation. The patient was seen by Cardiology (Electrophysiology) and the atrial fibrillation was felt to be due to electrolyte derangements and acute illness. The patient was monitored with replacement of electrolytes and there was no further atrial fibrillation, hence the patient was not started on anticoagulation or rhythm controlled medication. All antihypertensives were held including diuretics, and blood pressure improved and the patient was stable and tolerating oral intake. He also was started on oral vancomycin with improvement of diarrhea. The patient remained stable and was subsequently discharged home to complete oral antibiotics. PHYSICAL EXAMINATION: VITAL SIGNS: BP 113/68, pulse 85, respiratory rate 19, and temperature 98.9. GENERAL: Elderly male, in no obvious distress. Afebrile, anicteric, acyanotic. HEENT: Normocephalic, atraumatic. Pupils are equal and reactive to light. CARDIOLOGIC: Irregularly irregular rhythm and rate. Normal heart sounds 1 and 2. RESPIRATORY: Good air entry bilaterally. No crackle or rhonchi or use of accessory muscles. GI: Abdomen is full, soft, nontender, nondistended with normal bowel sounds. EXTREMITIES: Grossly normal looking, atraumatic with no edema or erythema. NEUROLOGIC: Conscious and alert, oriented x3 with appropriate mental status. The patient is ambulant. DISCHARGE MEDICATIONS: 1. Nitroglycerin 0.4 mg sublingual every 5 minutes as needed. 2. Zantac 150 mg daily at bedtime. 3. Zetia 10 mg daily. 4. Saxagliptin 5 mg p.o. daily in the morning. 5. Ranexa 1000 mg p.o. b.i.d. 6. Plavix 75 mg daily. 7. Crestor 40 mg daily in the morning. 8. Carvedilol 6.25 mg p.o. b.i.d. 9. Metformin 1000 mg b.i.d. with meals. 10. Aspirin 325 mg p.o. daily. 11. Vancomycin 250 mg q.i.d. 12. Florastor 250 mg b.i.d. 13. Potassium chloride 10 mEq p.o. daily. DISCHARGE INSTRUCTIONS: The patient was instructed not to take antihypertensives or diuretics. He is to follow up with the primary care physician in one week, who will recheck electrolytes and blood pressure with a view to restart some antihypertensives. This discharge took more than 35 minutes. Job ID: [id number]
--- NOTE | 2018-09-01 13:44 | EKG ---
Test Reason : Blood Pressure : / mmHG Vent. Rate : 103 BPM Atrial Rate : 103 BPM P-R Int : 142 ms QRS Dur : 090 ms QT Int : 344 ms P-R-T Axes : 010 008 -16 degrees QTc Int : 450 ms Sinus tachycardia with frequent Premature ventricular complexes Inferior infarct , age undetermined Abnormal ECG Confirmed by YONI STOVER, JARRELL ([id number]), telegraph editor KVNG WANG ([id number]) on 09/01/2018 1:44:21 PM Referred By: Confirmed By:JARRELL VALLEJO MD
== END 2018-08-30 14:10 | disposition home or self-care (01) | DRG 871 ==
LOC: ERS 14:58 → CCU 23:21
PROVIDERS: ADMIT Emergency Medicine; ATTEND Emergency Medicine
PROC: 3E033XZ Introduction of Vasopressor into Peripheral Vein, Percutaneous Approach (ICD-10-PCS; principal; 2018-08-27)
DX: A41.9 Sepsis, unspecified organism (principal); R65.21 Severe sepsis with septic shock; R57.8 Other shock; A04.72 Enterocolitis due to Clostridium difficile, not specified as recurrent; I50.22 Chronic systolic (congestive) heart failure; N17.9 Acute kidney failure, unspecified; I25.10 Atherosclerotic heart disease of native coronary artery without angina pectoris; E11.9 Type 2 diabetes mellitus without complications; E86.0 Dehydration; I15.9 Secondary hypertension, unspecified; T50.905A Adverse effect of unspecified drugs, medicaments and biological substances, initial encounter; I48.0 Paroxysmal atrial fibrillation; E87.6 Hypokalemia; E83.42 Hypomagnesemia; I25.5 Ischemic cardiomyopathy; Z95.1 Presence of aortocoronary bypass graft; Z90.49 Acquired absence of other specified parts of digestive tract; Z79.82 Long term (current) use of aspirin; Z79.84 Long term (current) use of oral hypoglycemic drugs; Z79.899 Other long term (current) drug therapy; Z79.02 Long term (current) use of antithrombotics/antiplatelets; Z88.0 Allergy status to penicillin; Z88.8 Allergy status to other drugs, medicaments and biological substances
CPT/HCPCS: 36415; 36416; 36556; 51701; 71045; 80048; 80053; 81003; 81015; 82010; 82550; 83605; 83690; 83735; 83880; 84484; 85025; 86850; 86900; 86901; 87040; 87045; 87046; 87324; 87328; 87329; 87449; 87899; 93005; 96361; 96365; 96366; C1769; J1160; J1650; J1956; J2001; J2405; P9047

== ENCOUNTER 2023-05-22 14:51 | Outpatient (CLI) | payer MEDICARE ==
[2023-05-22 15:44] LABS: #Eosinphils 0.3 10x3/uL (0.0-0.5); #Monocytes 0.6 10x3/uL (0.0-1.1); %Basophils 0.6 % (0.0-2.0); %Eosinophils 5.1 % (0.0-6.0); %Lymphocytes 26.7 % (18.0-47.0); %Monocytes 10.7 % (0.0-10.0); %Neutrophils 56.5 % (40.0-75.0); Hematocrit 37.5 % (38.8-50.0); Hemoglobin 12.7 g/dL (13.5-17.5); Mean Corpuscular HGB CONC 33.9 g/dL (32.0-36.0); Mean Corpuscular Hemoglobin 31.1 pg (27.0-33.0); Mean Corpuscular Volume 91.7 fl (81.2-95.1); Platelet Count 155 10x3/uL (150-450); RBC Distribution Width 15.3 % (11.5-14.5); Red Blood Cell (RBC) Count 4.09 10x6/uL (4.32-5.72); White Blood Cell (WBC) Count 5.3 10x3/uL (3.5-10.5)
[2023-05-22 16:01] LABS: ALT (SGPT) 16 U/L (8-55); AST (SGOT) 19 U/L (5-34); Albumin 4.4 g/dL (3.4-4.8); Alkaline Phosphatase 44 U/L (40-110); Anion Gap 13 mmol/L (10-20); BUN (Urea Nitrogen) 25 mg/dL (8.4-25.7); Bilirubin, Total 0.6 mg/dL (0.2-1.2); Calc. Creatinine Clearance 0 mL/min (70-130); Calcium 9.3 mg/dL (7.8-10.44); Carbon Dioxide 25 mmol/L (23-31); Chloride 105 mmol/L (98-107); Estimated GFR 63; Globulin 2.5 g/dL (2.4-3.5); Glucose 131 mg/dL (83-110); Potassium 4.4 mmol/L (3.5-5.1); Protein, Total 6.9 g/dL (5.8-8.1); Sodium 139 mmol/L (136-145)
== END 2023-05-22 14:52 | disposition home or self-care (01) ==
LOC: LABBT 14:51
PROVIDERS: ATTEND Internal Medicine Cardiovascular Disease
DX: Z01.812 Encounter for preprocedural laboratory examination (principal)
CPT/HCPCS: 80053; 85025

== ENCOUNTER 2023-05-26 07:59 | Day surgery (SDC) | payer MEDICARE ==
[2023-05-22 15:34] VITALS: BMI 22.8
[2023-05-26] MEDS ORDERED: Nitroglycerin 50 MG/250 ML BOT 0 ML ONE (08:21)
[2023-05-26] MEDS ORDERED: fentaNYL 50 mcg/mL 1 mL Vial ONE (08:21)
[2023-05-26] MEDS ORDERED: Heparin 10,000 UNITS/ 10 ML VIAL ONE (08:21)
[2023-05-26] MEDS ORDERED: Midazolam HCl 2 mg/2 ml Vial ONE (08:21)
[2023-05-26] MEDS ORDERED: Lidocaine 1% (PF) 30 ML VIAL ONE (08:21)
[2023-05-26] MEDS ORDERED: Iopamidol 370 76% 100 ML VIAL ONE (13:59)
== END 2023-05-26 14:27 | disposition home or self-care (01) ==
LOC: CCL 07:59
PROVIDERS: ATTEND Internal Medicine Cardiovascular Disease
PROC: 4A023N7 Measurement of Cardiac Sampling and Pressure, Left Heart, Percutaneous Approach (ICD-10-PCS; principal; 2023-05-26)
DX: R94.39 Abnormal result of other cardiovascular function study (principal); I11.0 Hypertensive heart disease with heart failure; I50.22 Chronic systolic (congestive) heart failure; E78.5 Hyperlipidemia, unspecified; I42.9 Cardiomyopathy, unspecified; I48.0 Paroxysmal atrial fibrillation; I25.10 Atherosclerotic heart disease of native coronary artery without angina pectoris; Z90.49 Acquired absence of other specified parts of digestive tract; Z79.82 Long term (current) use of aspirin; Z79.01 Long term (current) use of anticoagulants; Z79.899 Other long term (current) drug therapy; Z95.1 Presence of aortocoronary bypass graft; Z88.0 Allergy status to penicillin; Z88.6 Allergy status to analgesic agent
CPT/HCPCS: 82962; 93459; C1725; J3010; 36416; 99152; 99153; J1644; J2001; J2250; Q9967

== ENCOUNTER 2023-06-14 10:04 | Emergency (ER) | payer MEDICARE ==
[2023-06-14 10:28] LABS: #Eosinphils 0.3 thou/uL (0.0-0.7); #Monocytes 0.7 thou/uL (0.11-0.59); #Neutrophils 4.2 thou/uL (1.40-6.50); %Basophils 0.5 % (0.0-1.0); %Lymphocytes 19.6 % (21.0-51.0); %Monocytes 10.3 % (0.0-10.0); %Neutrophils 65.3 % (42.0-75.0); Hematocrit 35.5 % (42.0-52.0); Hemoglobin 11.5 g/dL (14.0-18.0); Mean Corpuscular HGB CONC 32.4 g/dL (32.0-36.0); Mean Corpuscular Hemoglobin 30.5 pg (27.0-31.0); Mean Corpuscular Volume 94.2 fl (78.0-98.0); Mean Platelet Volume 9.6 fL (7.4-10.4); Platelet Count 133 10x3/uL (130-400); RBC Distribution Width 15.3 % (11.5-14.5); Red Blood Cell (RBC) Count 3.77 mill/uL (4.70-6.10); White Blood Cell (WBC) Count 6.4 10x3/uL (4.8-10.8)
[2023-06-14 10:40] LABS: ALT (SGPT) 17 U/L (8-55); AST (SGOT) 16 U/L (5-34); Albumin 3.7 g/dL (3.4-4.8); Alkaline Phosphatase 38 U/L (40-110); Anion Gap 15 mmol/L (10-20); BUN (Urea Nitrogen) 19 mg/dL (8.4-25.7); Bilirubin, Total 0.7 mg/dL (0.2-1.2); Calc. Creatinine Clearance 0 mL/min (70-130); Calcium 8.5 mg/dL (7.8-10.44); Carbon Dioxide 23 mmol/L (23-31); Chloride 107 mmol/L (98-107); Estimated GFR 57; Globulin 2.7 g/dL (2.4-3.5); Glucose 196 mg/dL (83-110); Potassium 4.6 mmol/L (3.5-5.1); Protein, Total 6.4 g/dL (5.8-8.1); Sodium 140 mmol/L (136-145)
[2023-06-14 10:44] LABS: Troponin I Less than 0.010 ng/mL (< 0.028)
[2023-06-14 10:46] LABS: INR-International Normal Ratio 1.5; PTT 23.1 sec (22.9-36.1); Prothrombin Time 18.2 sec (12.0-14.7)
== END 2023-06-14 12:26 | disposition home or self-care (01) ==
LOC: ERS 10:04
DX: R55 Syncope and collapse (principal); E11.9 Type 2 diabetes mellitus without complications; I50.9 Heart failure, unspecified; I48.91 Unspecified atrial fibrillation; Z79.82 Long term (current) use of aspirin; Z79.01 Long term (current) use of anticoagulants; Z79.84 Long term (current) use of oral hypoglycemic drugs
CPT/HCPCS: 71045; 80053; 84484; 85025; 85610; 85730; 93005

== ENCOUNTER 2023-07-10 06:00 | Day surgery (SDC) | payer MEDICARE ==
[2023-07-06 07:57] VITALS: BMI 23.0
[2023-07-06 08:11] LABS: Hemoglobin 12.8 g/dL (13.5-17.5); Mean Corpuscular HGB CONC 32.8 g/dL (32.0-36.0); Mean Corpuscular Hemoglobin 30.7 pg (27.0-33.0); Mean Corpuscular Volume 93.5 fl (81.2-95.1); Mean Platelet Volume 9.7 fl (7.4-10.4); Platelet Count 158 10x3/uL (150-450); RBC Distribution Width 15.2 % (11.5-14.5); Red Blood Cell (RBC) Count 4.17 10x6/uL (4.32-5.72); White Blood Cell (WBC) Count 7.5 10x3/uL (3.5-10.5)
[2023-07-06 08:23] LABS: INR-International Normal Ratio 1.1; PTT 26.9 sec (22.0-33.0); Prothrombin Time 11.5 sec (9.5-12.1)
[2023-07-06 08:33] LABS: Anion Gap 13 mmol/L (10-20); BUN (Urea Nitrogen) 16 mg/dL (8.4-25.7); Calc. Creatinine Clearance 63 mL/min (70-130); Calcium 9.5 mg/dL (7.8-10.44); Carbon Dioxide 25 mmol/L (23-31); Chloride 106 mmol/L (98-107); Estimated GFR 71; Glucose 166 mg/dL (83-110); Potassium 4.2 mmol/L (3.5-5.1); Sodium 140 mmol/L (136-145)
[2023-07-10] MEDS ORDERED: Protamine Sulfate 50 MG/5 ML VIAL ONE (07:03)
[2023-07-10] MEDS ORDERED: Heparin 10,000 UNITS/ 10 ML VIAL ONE (07:03)
[2023-07-10] MEDS ORDERED: Heparin 25,000 units/D5W 500 ML ONE (07:03)
[2023-07-10] MEDS ORDERED: fentaNYL 50 mcg/mL 1 mL Vial ONE (07:30)
[2023-07-10] MEDS ORDERED: Midazolam HCl 2 mg/2 ml Vial ONE (07:40)
[2023-07-10] MEDS ORDERED: Rocuronium Bromide 10 MG/ML (10ML VIAL) ONE (07:56)
[2023-07-10] MEDS ORDERED: ePHEDrine Sulfate 50 MG/10 ML VIAL ONE (07:56)
[2023-07-10] MEDS ORDERED: Ondansetron PF 4 MG/2 ML Vial ONE (07:56)
[2023-07-10] MEDS ORDERED: Lidocaine 1% PF 5 ML VIAL ONE (07:56)
[2023-07-10] MEDS ORDERED: PHENYLEPHRINE-NS 100 MCG/ML 10 ML SYRINGE ONE (07:56)
[2023-07-10] MEDS ORDERED: PROPOFOL 200 MG/20 ML VIAL ONE (07:56)
[2023-07-10] MEDS ORDERED: Isoproterenol 0.2 MG/1 ML AMP ONE ×2 (08:58)
[2023-07-10] MEDS ORDERED: SUGAMMADEX SODIUM 200 MG/2 ML VIAL ONE (10:22)
[2023-07-10] MEDS ORDERED: Furosemide 20 MG (2 mL) VIAL ONE (11:37)
== END 2023-07-10 15:10 | disposition home or self-care (01) ==
LOC: SDC 06:00
PROVIDERS: ATTEND Internal Medicine Cardiovascular Disease
PROC: 02583ZZ Destruction of Conduction Mechanism, Percutaneous Approach (ICD-10-PCS; principal; 2023-07-10)
PROC: 4A027FZ Measurement of Cardiac Rhythm, Via Natural or Artificial Opening (ICD-10-PCS; 2023-07-10)
PROC: 4A0274Z Measurement of Cardiac Electrical Activity, Via Natural or Artificial Opening (ICD-10-PCS; 2023-07-10)
DX: I48.19 Other persistent atrial fibrillation (principal); I50.22 Chronic systolic (congestive) heart failure; I25.5 Ischemic cardiomyopathy; E11.9 Type 2 diabetes mellitus without complications; I47.20 Ventricular tachycardia, unspecified; I25.10 Atherosclerotic heart disease of native coronary artery without angina pectoris; Z95.810 Presence of automatic (implantable) cardiac defibrillator; Z79.01 Long term (current) use of anticoagulants; Z95.1 Presence of aortocoronary bypass graft; Z88.0 Allergy status to penicillin; Z88.8 Allergy status to other drugs, medicaments and biological substances; Z79.82 Long term (current) use of aspirin; Z79.899 Other long term (current) drug therapy; Z98.890 Other specified postprocedural states
CPT/HCPCS: 80048; 85027; 85347 ×2; 85610; 85730; 93005; 93623; 93655; 93656 ×2; 93657; C1732 ×3; C1759; C1760; C1894 ×2; J3010; J1644; J1940; J2250; J2405; J2704; J2720

== ENCOUNTER 2024-08-09 09:54 | Outpatient (CLI) | payer MEDICARE | END 2024-08-09 09:55 | disposition home or self-care (01) | LOC: LABBT 09:54 | PROVIDERS: ATTEND Internal Medicine Cardiovascular Disease | DX: Z01.810 Encounter for preprocedural cardiovascular examination (principal); I48.0 Paroxysmal atrial fibrillation; Z91.81 History of falling | CPT/HCPCS: 93005; 93010 ==

== ENCOUNTER 2024-12-17 14:22 | Outpatient (CLI) | payer MEDICARE | END 2024-12-17 14:23 | disposition home or self-care (01) | LOC: BICRAD 14:22 | PROVIDERS: ATTEND Family Medicine | DX: M25.551 Pain in right hip (principal); M16.11 Unilateral primary osteoarthritis, right hip ==